=== PATIENT | male | born 1965 | race Caucasian/White ===

== ENCOUNTER → 2020-05-21 | Outpatient (CLI) | payer MEDICAID ==
--- NOTE | 2020-05-25 15:37 | ECHOF ---
Referral Reason:R01.1 cardiac murmur MEASUREMENTS -------- HEIGHT: 179.1 cm WEIGHT: 106.6 kg BP: RVIDd: 3.8 cm (< 3.3) IVSd: 1.1 cm (0.6 - 1.1) LVIDd: 4.4 cm (3.9 - 5.3) LVPWd: 1.1 cm (0.6 - 1.1) IVSs: 1.7 cm LVIDs: 2.9 cm LVPWs: 1.5 cm LA Diam: 3.3 cm (2.7 - 3.8) LAESV Index (A-L): 24.87 ml/m Ao Diam: 3.9 cm (2.0 - 3.7) AV Cusp: 1.8 cm (1.5 - 2.6) MV EXCURSION: 13.261 mm (> 18.000) MV EF SLOPE: 74 mm/s (70 - 150) EPSS: 0.8 cm MV E Yony: 0.81 m/s MV DecT: 284 ms MV A Yony: 0.93 m/s MV E/A Ratio: 0.87 AV maxP.83 mmHg AV meanP.21 mmHg RAP: 5.00 mmHg RVSP: 29.15 mmHg FINDINGS -------- Sinus rhythm. This was a technically adequate study. The left ventricular size is normal. There is borderline concentric left ventricular hypertrophy. Overall left ventricular systolic function is normal with, an EF between 60 - 65 %. The right ventricle is mildly enlarged. Normal LA size by volume 22+/-6 ml/m2. The right atrium is normal in size. Interatrial and interventricular septum intact. Aortic valve is trileaflet and is moderately thickened. Trace to mild aortic regurgitation. There is mild aortic stenosis present. Peak/mean gradient across the Aortic Valve is 22.83mmHg / 11.21mm Hg. Can't exclude possible Bicuspid Aov. The mitral valve is normal. Mild tricuspid regurgitation present. Right ventricular systolic pressure is normal at < 35 mmHg. The pulmonic valve was not well visualized. The aortic root is dilated measuring 3.9cm. Normal inferior vena cava with normal inspiratory collapse consistent with estimated right atrial pre ssure of 5 mmHg. There is no pericardial effusion. CONCLUSIONS -------- 1. The left ventricular size is normal. 2. There is borderline concentric left ventricular hypertrophy. 3. Overall left ventricular systolic function is normal with, an EF between 60 - 65 %. 4. The right ventricle is mildly enlarged. 5. Aortic valve is trileaflet and is moderately thickened. 6. Trace to mild aortic regurgitation. 7. There is mild aortic stenosis present. 8. Peak/mean gradient across the Aortic Valve is 22.83mmHg / 11.21mmHg. 9. Can't exclude possible Bicuspid Aov. 10. Mild tricuspid regurgitation present. 11. The aortic root is dilated measuring 3.9cm. 12. There is no pericardial effusion. QUILL LAYER: MOISES Urena
== END | disposition home or self-care (01) ==
LOC: RADECHMAIN 10:58
PROVIDERS: ATTEND Family Medicine
DX: I77.810 Thoracic aortic ectasia (principal); I08.2 Rheumatic disorders of both aortic and tricuspid valves
CPT/HCPCS: 93306

== ENCOUNTER → 2020-08-22 | Outpatient (CLI) | payer MEDICAID ==
--- NOTE | 2020-08-22 15:14 | CONS ---
CONSULTATION DATE OF SERVICE: 08/22/2020. A 55-year-old gentleman who has been evaluated in the sleep center for possible obstructive sleep apnea-hypopnea syndrome. HISTORY OF PRESENT ILLNESS/SLEEP-WAKE EVALUATION: Patient usual sleep schedule is from 9 to 10 p.m. until 5 to 6 a.m. on weekdays and from 11 p.m. to 7 a.m. on weekend. Usually no significant problem with falling asleep. No TV in bedroom. Patient usually sleeps on the back and side position with his with moderate snoring and witnessed episodes of stopped breathing during the sleep. In the morning, patient wakes up tired, has difficulties paying attention, has problems with the memory, depression and claustrophobia. [place] Sleepiness Scale is 7. PAST MEDICAL HISTORY: Positive for hypertension with some abnormalities on echocardiogram. MEDICATIONS: Losartan. PAST SURGICAL HISTORY: Surgery for carpal tunnel syndrome bilaterally in 2018. SOCIAL HISTORY: Positive for smoking 1 pack a day. Alcohol consumption occasional. REVIEW OF SYSTEMS: Awakenings from sleep with nocturia 3 times, episodes of depression, problem with the memory. PHYSICAL EXAMINATION: GENERAL: gentleman without distress. VITAL SIGNS: BP 126/86, HR 72, RR 18, height 5 feet 11 inches, weight 238, BMI 33.1, temperature 98.2, oxygen saturation at room air 99%. HEENT: PERRLA, EOMI. Oropharynx extremely low position of soft palate. Mallampati 4. NECK: Wide neck 17-1/4 inches in circumference. LUNGS: Clear to percussion and to auscultation. Good air exchange. No wheezing or rhonchi. HEART: S1, S2 regular. No murmurs, gallops, or rubs. ABDOMEN: Slightly obese. EXTREMITIES: No clubbing or cyanosis. 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 Cranial nerves 2 to 7 intact. There is no fasciculation or atrophy. noted. No focal deficits observed. IMPRESSION: 1. Snoring, witnessed episodes of stopped breathing during the sleep, extremely low position of soft palate, Mallampati 4, wide neck, obstructive sleep apnea-hypopnea syndrome. 2. Obesity, body mass index 33.1. 3. Hypertension. 4. Status post bilateral surgery for carpal tunnel syndrome. PLAN: 1. Polysomnography for evaluation of patient's breathing during sleep. 2. CPAP/BiPAP titration if sleep study confirms obstructive sleep apnea-hypopnea syndrome. 3. Preferable position during sleep on the side. 4. No driving if patient feels any sleepiness. 5. I will see patient for follow up visit to explain results of testing and following plan. Thank you very much for referring this patient for consultation. Sincerely, Srinivasa Seay MD, PhD, FAASM Diplomat of [employer] [employer] [facility] [place] MMODL / IJN: [id number] /
== END | disposition home or self-care (01) ==
LOC: SLEEP 13:38
PROVIDERS: ATTEND Internal Medicine
DX: G47.33 Obstructive sleep apnea (adult) (pediatric) (principal); E66.9 Obesity, unspecified; I10 Essential (primary) hypertension; Z68.33 Body mass index [BMI] 33.0-33.9, adult; Z79.899 Other long term (current) drug therapy; Z98.890 Other specified postprocedural states
CPT/HCPCS: 99211

== ENCOUNTER → 2020-10-03 | Outpatient (CLI) | payer MEDICAID ==
--- NOTE | 2020-10-03 14:52 | CT ---
EXAMINATION TYPE: CT angio chest DATE OF EXAM: 10/03/2020 2:16 PM COMPARISON: None. HISTORY: Heart murmur. Thoracic aortic aneurysm. CT DLP: 682.7 mGycm Automated exposure control for dose reduction was used. CONTRAST: CTA scan of the thorax is performed without and with IV Contrast, patient injected with 100 mL of Iso kit 370, pulmonary embolism protocol. 3D reconstructed images are created on an independent workstat ion and reviewed.. FINDINGS: LUNGS: The lungs are grossly clear, there is no concerning parenchymal mass or nodule identified. T here is no pleural effusion or pneumothorax seen. The tracheobronchial tree is patent. MEDIASTINUM: Noncontrast images show no suspicious hyperdense material to suggest intramural hematoma . Nondilated central pulmonary arteries without thrombosis. Aneurysm to ascending aorta up to 4.7 cm axial image 27. Normal three-vessel origin from aortic arch without aneurysmal extension into the arc h. No significant plaque or aneurysm in the descending aorta. There are no greater than 1 cm hilar o r mediastinal lymph nodes. No pericardial effusion is seen. Moderate calcification at level of the aortic valve leaflets. OTHER: There is 2.8 cm thin-walled benign cyst in the medial aspect upper pole left kidney axial asmita ge 60. There is additional smaller central thin-walled cyst image 66. There is 2 to 3 mm nonobstructi ng calculus upper pole level coronal image 27 series 12 IMPRESSION: There is confirmation of 4.7 cm ascending aortic aneurysm.
== END ==
LOC: RADCTMAIN 13:09
PROVIDERS: ATTEND Internal Medicine Clinical Cardiac Electrophysiology
DX: I71.2 Thoracic aortic aneurysm, without rupture (principal)
CPT/HCPCS: 71275; Q9967

== ENCOUNTER → 2021-05-06 | Outpatient (CLI) | payer MEDICAID ==
--- NOTE | 2021-05-06 12:42 | XR ---
EXAMINATION TYPE: XR Hip Complete RT DATE OF EXAM: 05/06/2021 CLINICAL HISTORY: Chronic increasing right hip pain TECHNIQUE: AP and frogleg views of the right hip are obtained. COMPARISON: None. FINDINGS: There is no acute fracture/dislocation evident in the right hip. The joint space in the r ight hip appears within normal limits. The overlying soft tissue appears unremarkable. IMPRESSION: There is no acute fracture or dislocation in the right hip.
== END | disposition home or self-care (01) ==
LOC: RADXRYALE 11:49
PROVIDERS: ATTEND Physician Assistant Medical
DX: M25.551 Pain in right hip (principal)
CPT/HCPCS: 73502

== ENCOUNTER → 2022-07-31 | Outpatient (CLI) | payer MEDICAID, OTHER ==
--- NOTE | 2022-07-31 14:11 | CTL ---
EXAMINATION TYPE: CT Low Dose Lung DATE OF EXAM ORDERED: 07/31/2022 HISTORY: Long-term tobacco use. Lung cancer screening CT DLP: 99.[address] CTDI: 2.6 mGy Automated exposure control for dose reduction was used. SCREENING VISIT: Baseline COMPARISON: Prior CTA chest October 03, 2020 TECHNIQUE: Low dose computed tomography scan was performed through the chest at 1 mm thick sections a nd reconstructed images in multiple planes at 1 mm and [address] DIAGNOSTIC QUALITY: Satisfactory FINDINGS: LUNG NODULES: None. LUNGS: COPD: Severity: Mild Fibrosis: Severity: Mild Lymph nodes: None Other findings: Ascending aortic aneurysm up to 4.8 cm series 5 image 26. Calcification at level of t he aortic valve. RIGHT PLEURAL SPACE: Effusion: None Calcification: None Thickening: None Pneumothorax: None LEFT PLEURAL SPACE: Effusion: None Calcification: None Thickening: None Pneumothorax: None HEART: Heart Size: Normal Coronary Calcification: None Pericardial Effusion: None OTHER FINDINGS: Upper abdomen: Roughly 1.0 cm hypodense lesion left hepatic dome axial image 47 favors benign thin-wa lled cyst. Bony thorax: None Supraclavicular region: None Other: None IMPRESSION: Mild emphysematous change without suspicious nodule. CT LUNG RAD AND CT CHEST RECOMMENDATION: Lung-Rad 1 Negative: Continue annual screening with LDCT in 12 months. S Modifier (other clinically significant findings): S Ascending aortic aneurysm up to 4.8 cm in size is redemonstrated. Valvular thickening and calcificati on of the aortic valve again seen. Advise cardiothoracic surgical follow-up.
== END | disposition home or self-care (01) ==
LOC: RADCTMAIN 13:08
PROVIDERS: ATTEND Family Medicine
DX: Z12.2 Encounter for screening for malignant neoplasm of respiratory organs (principal); J43.9 Emphysema, unspecified; I71.21 Aneurysm of the ascending aorta, without rupture; Z87.891 Personal history of nicotine dependence
CPT/HCPCS: 71271

== ENCOUNTER → 2022-07-31 | Outpatient (CLI) | payer MEDICAID, OTHER ==
--- NOTE | 2022-07-31 14:18 | CT ---
EXAMINATION TYPE: CT angio chest DATE OF EXAM: 07/31/2022 COMPARISON: CTA chest October 03, 2020 HISTORY: Thoracic aortic aneurysm w/out rupture CT DLP: 1185.10 mGycm. Automated Exposure Control for Dose Reduction was Utilized. CONTRAST: CTA scan of the thorax is performed without and with IV Contrast, patient injected with 100 mL of Iso kit 370, aneurysm protocol. 3D reconstructed images are created on an independent workstation and rev iewed. FINDINGS: LUNGS: The lungs are grossly clear, there is no concerning parenchymal mass or nodule identified. T here is no pleural effusion or pneumothorax seen. The tracheobronchial tree is patent. MEDIASTINUM: Noncontrast images show no suspicious hyperdense material to suggest intramural hematoma . There is redemonstration of ascending aortic aneurysm measuring 4.1 cm in diameter at the aortic ro ot coronal image 72. There is mild to moderate wall thickening and moderate to severe calcification l evel of the aortic valve redemonstrated. Aneurysm increases to up to 4.8 cm in the ascending aorta. N o aneurysmal extension into the articular descending aorta is seen. There is three-vessel origin with out significant plaque or stenosis. There are prominent but subcentimeter bilateral hilar along with mediastinal lymph nodes. No cardiomegaly or pericardial effusion is seen. OTHER: Simple-appearing thin-walled cysts in the left kidney are redemonstrated. There may be 2 mm no nobstructing calculus upper pole left kidney coronal image 103. IMPRESSION: Accounting for technical differences, fairly stable ascending aortic aneurysm up to 4.8 c m in size on current study
== END | disposition home or self-care (01) ==
LOC: RADCTMAIN 13:01
PROVIDERS: ATTEND Surgery
DX: I71.21 Aneurysm of the ascending aorta, without rupture (principal)
CPT/HCPCS: 71275; Q9967

== ENCOUNTER 2024-06-03 13:13 | Day surgery (SDC) | payer MEDICARE ==
[2024-06-03 14:07] VITALS: TEMP 96.8
[2024-06-03] MEDS: IV FLUID CONTINUATION 1,000 ML IV ONE (14:09)
[2024-06-03] MEDS: LACTATED RINGERS 1,000 ML IV SCH (14:12)
[2024-06-03] MEDS ORDERED: PROPOFOL 10 MG/ML 20 ML VIAL IV ONE (14:54)
--- NOTE | 2024-06-03 15:15 | P.PCN ---
Date of Procedure: 06/03/24 Procedure(s) Performed: BRIEF HISTORY: Patient is a 59-year-old pleasant white male scheduled for an elective colonoscopy as a part of a large broad-based cecal polyp that was noted on colonoscopy in August 2022. Biopsies revealed tubular adenoma. PROCEDURE PERFORMED: Colonoscopy with snare polypectomy and biopsy. PREOPERATIVE DIAGNOSIS: Follow-up large cecal polyp diagnosed a year and a half ago. IV sedation per Anesthesia. PROCEDURE: After informed consent was obtained, the patient, was brought into the endoscopy unit. IV sedation was administered by Anesthesia under continuous monitoring. Digital rectal examination was normal. Initially the Olympus CF-160 flexible video colonoscope was then inserted in the rectum, gradually advanced into the cecum without any difficulty. Careful examination was performed as the scope was gradually being withdrawn. Ileocecal valve and the appendiceal orifice were visualized and appeared normal. Prep was excellent. Mucosa of the cecum, did not have any residual polyp identified. Rest of the ascending colon, appeared normal. The transverse colon there was a 3 mm polyp that was removed by cold biopsy. Rest of the transverse colon, descending colon, sigmoid colon, and rectum appeared normal. Rectosigmoid colon there was a 7 mm polyp removed by cold snare polypectomy. Retroflexion was performed in the rectum and no lesions were seen. The patient tolerated the procedure well. IMPRESSION: No residual cecal polyp noted. 3 mm transverse colon polyp status post cold biopsy 7 mm rectosigmoid polyp status post cold snare polypectomy RECOMMENDATIONS: Findings of this examination were discussed with the patient as well as his family. He was advised to follow-up with the biopsy results. Recommended repeat colonoscopy in 3 years because of prior history of colon polyps..
[2024-06-03 15:42] VITALS: BP 135/86; PULSE 78; RESP 18
== END 2024-06-03 15:52 | disposition home or self-care (01) ==
LOC: ORWHC2ENDO 13:13
PROVIDERS: ATTEND Internal Medicine Gastroenterology
DX: D12.3 Benign neoplasm of transverse colon (principal); I10 Essential (primary) hypertension; E78.5 Hyperlipidemia, unspecified; I71.21 Aneurysm of the ascending aorta, without rupture; J44.9 Chronic obstructive pulmonary disease, unspecified; F17.210 Nicotine dependence, cigarettes, uncomplicated; Z79.51 Long term (current) use of inhaled steroids; Z86.0101 Personal history of adenomatous and serrated colon polyps; Z79.899 Other long term (current) drug therapy; Z98.890 Other specified postprocedural states
CPT/HCPCS: 88305; 45380; 45385; J2704